=== PATIENT | male | born 1955 | race Caucasian/White ===

== ENCOUNTER → 2017-06-02 | Outpatient (CLI) | payer BC, OTHER ==
[~2017-06-02] MED LIST: B COMPLEX1 EAC1 PO; CALCIUM 600 +1 EAC8 PO; CENTRUM SILVER1 EAC4 PO; CLONAZEPAM 1 MG1 M1 PO; FISH OIL 1,2001 EAC4 PO; IBUPROFEN 200200 M1 PO; MIRALAX17 GM PO; NEURONTIN 300300 M1 PO; OMEGA-31000 M1 PO; OXYCONTIN40 MG PO; PERCOCET 10-321 EACH PO; PSEUDOEPHEDRIN120 M1 PO; RELPAX40 MG PO; TUMS PO; TYLENOL325 MG PO; VITAMIN E400 UNIT PO
== END ==
LOC: ULTRA 07:18
DX: R10.11 Right upper quadrant pain (principal)

== ENCOUNTER 2017-07-15 16:10 | Emergency (ER) | payer BC, OTHER ==
[~2017-07-15] VITALS: Ht 180.3 cm; Wt 95.3 kg
--- NOTE | ~2017-07-15 | EKG ---
[address] [address] ELECTROCARDIOGRAM REPORT Name: RALF MAIN Room #: 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
[2017-07-15 16:33] LABS: URINE BILIRUBIN NEGATIVE (Negative); URINE BLOOD NEGATIVE (Negative); URINE CLARITY SL CLOUDY; URINE COLOR YELLOW; URINE GLUCOSE-RANDOM* NEGATIVE (Negative); URINE KETONES NEGATIVE (Negative); URINE LEUKOCYTES NEGATIVE (Negative); URINE NITRITE NEGATIVE (Negative); URINE PROTEIN (DIPSTICK) NEGATIVE (Negative); URINE SPECIFIC GRAVITY 1.025 (1.005-1.035); URINE UROBILINOGEN 0.2 E.U./dl (0.2-1.0)
[2017-07-15 16:49] LABS: ABSOLUTE NEUTROPHILS 7.5 thou/uL (1.4-8.2); BASOPHILS 0.5 % (0.0-2.0); EOSINOPHILS 2.2 % (0.0-3.0); HEMATOCRIT 48.6 % (42.0-52.0); LYMPHOCYTES 21.6 % (24.0-44.0); MCH 30.5 pg (26.0-34.0); MONOCYTES 6.1 % (1.0-8.0); PLATELET COUNT 280 thou/uL (150-400); POLYS 69.6 % (36.0-66.0); RBC 5.59 mil/uL (4.50-6.00); RDW 13.6 % (10.5-14.5); WBC 10.7 thou/uL (4.0-11.0)
[2017-07-15] MEDS ORDERED: MOVANTIK25 MG PO (16:54)
[2017-07-15] MEDS ORDERED: AMPHETAMINE SAL20 M1 PO (16:54)
[2017-07-15] MEDS ORDERED: TESTONE CI200 MG/1 M IM (16:56)
[2017-07-15 16:57] LABS: ANION GAP 6 mmol/L (7-16); BUN 23 mg/dL (7-18); CALCIUM 9.5 mg/dL (8.5-10.1); CHLORIDE 103 mmol/L (98-107); CO2 31 mmol/L (21-32); GLUCOSE 118 mg/dL (74-106); POTASSIUM 3.8 mmol/L (3.5-5.1); SODIUM 140 mmol/L (136-145)
[2017-07-15 17:09] LABS: ALBUMIN 4.1 g/dL (3.4-5.0); LIPASE 129 U/L (73-393); SGOT 16 U/L (15-37); SGPT 33 U/L (30-65); TOTAL BILIRUBIN 0.7 mg/dL (<0.1-1.0); TOTAL PROTEIN 7.4 g/dL (6.4-8.2); TROPONIN-I < 0.04 ng/mL (<0.06)
[2017-07-15 17:49] LABS: AMP/METHAMP POSITIVE (Negative); BARBITURATES Negative (Negative); BENZODIAZEPINES Negative (Negative); COCAINE Negative (Negative); METHADONE Negative (Negative); OPIATES POSITIVE (Negative); PCP Negative (Negative)
[2017-07-15 19:08] VITALS: BP 136/79
== END 2017-07-15 19:09 | disposition home or self-care (01) ==
LOC: ER 16:10
PROVIDERS: Emergency Medicine; Nurse Practitioner Family
DX: G89.29 Other chronic pain (principal); M79.602 Pain in left arm; M79.601 Pain in right arm; K21.9 Gastro-esophageal reflux disease without esophagitis; K59.00 Constipation, unspecified; Z87.442 Personal history of urinary calculi; Z87.891 Personal history of nicotine dependence

== ENCOUNTER → 2019-07-28 | Outpatient (CLI) | payer BC, OTHER ==
[~2019-07-28] MED LIST changes: +AMPHETAMINE SAL20 M1 PO; +MOVANTIK25 MG PO; +TESTONE CI200 MG/1 M IM
== END ==
LOC: MRI 07-11 15:39
DX: M47.815 Spondylosis without myelopathy or radiculopathy, thoracolumbar region (principal); M51.26 Other intervertebral disc displacement, lumbar region

== ENCOUNTER → 2019-11-30 | Outpatient (CLI) | payer BC, OTHER ==
[~2019-11-30] VITALS: Ht 180.3 cm; Wt 103.5 kg
[~2019-11-30] MED LIST changes: +CYMBALTA30 MG PO; +DEPO-TESTO200 MG/1 M IM; +EXCEDRIN CAPLE1 EACH PO; +GEODON 80 MG CA80 MG PO; +KLONOPIN1 MG PO; +METHADONE HCL 110 M1 PO; +METHYLPHENIDATE5 MG PO; +MORPHABOND PO; +MULTIVITAMINS1 EAC7 PO; +NUCYNTA ER150 MG PO; +NUCYNTA75 MG PO; +OXYCONTIN80 M1 PO
[2019-11-30 15:30] VITALS: BP 124/76
--- NOTE | 2019-11-30 15:52 | NUR ---
Pain Clinic Assessment: 1. History of Osteoarthritis: SPINAL History of Rheumatoid Arthritis: Not Applicable 2. Height: 5 ft. 11 in. 180.3 cm. Weight: 228.2 lb. oz. 103.511 kg. Patient's BMI: 31.8 3. Vital Signs: BP: 124/76 Pulse: 80 Resp: 16 Temp: 02 Sat: 97 ECG Mon: 4. Pain Intensity: 6 5. Fall Risk: Dizziness: N Needs help standing or walking: N Fallen in the last 3 months: N Fall risk comments: 6. Patient on Blood Thinner: None 7. History of Hypertension: N 8. Opioid Therapy greater than 6 weeks: Y Opiate Contract Signed: 9. Risk Assessment Tool Provided: DR STEINER 10. Functional Assessment Tool: 11. Recreational Drug Use: Never Drug Type: Tobacco Use: Never Smoker Tobacco Type: Amount or Packs/day: How Many Years: Alcohol Use: Yes Frequency: Monthly Quant: 1 DRINK
--- NOTE | 2019-12-13 09:14 | HPC ---
[facility] [place] [address] PAIN MANAGEMENT CONSULTATION Name: RALF MAIN Room #: REG Breana Gonzalez.#: [id number] Admission: 11/30/19 Attend Phys: Austyn Hays DO Discharge: Date of : 55 Report #: [id number] THIS REPORT FOR: cc: Dharmesh Short MD, Neal A. MD Johnson, James E. DO ~ DATE OF SERVICE: 11/30/2019 REFERRING PHYSICIAN: Neptali Story MD CHIEF COMPLAINT: Low back pain, bilateral lower extremity pain, right greater than left. HISTORY OF PRESENT ILLNESS: As you know, the patient is a 64-year-old male who has returned today in followup visit per the request of his neurosurgeon, Dr. Neptali Story to undergo a lumbar epidural injection to address suspected lumbar radiculopathy. The patient is reporting pain that begins in low back, radiates to the bilateral legs, right greater than left. He indicates pain on the anterior and anterolateral thigh as well as the posterior and posterolateral thigh. He notes numbness and tingling in this distribution. He has been referred to our clinic to trial an epidural injection under fluoroscopic guidance in hopes of improving pain. Plan according to the patient is if epidural injections do provide benefit, to continue this more conservative option. If no improvement in symptoms, surgical options will be entertained. He has been referred back to our clinic after being last seen in July to undergo lumbar epidural injection. ALLERGIES: No known drug allergies. CURRENT MEDICATIONS: See chart. SOCIAL HISTORY: The patient reports he is a nonsmoker. He denies IV or illicit drug use. Admits to one drink monthly. He is accompanied by his present in room today. IMAGING: No new imaging available. PHYSICAL EXAMINATION: VITAL SIGNS: Blood pressure 124/76, pulse is 80, respiratory rate 16 and unlabored. The patient is 97% on room air. Height 5 feet 11 inches tall, weight 228.2 pounds, BMI calculated 31.8. GENERAL: Well-developed, well-nourished, well-hydrated 64-year-old male, he appears stated age, no acute distress. Pain is rated today 6/10. HEENT: Normocephalic, atraumatic. Pupils equal, round and reactive. NEUROLOGIC: Speech fluent. The patient [place] [address] PAIN MANAGEMENT CONSULTATION Name: JOSE DAVIDRALF Room #: REG CLBreana Hector#: [id number] Admission: 11/30/19 Attend Phys: Austyn Hays DO Discharge: Date of : 55 Report #: [id number] EXTREMITIES: Show no clubbing, no cyanosis, no edema. MUSCULOSKELETAL: There is a well-healed surgical scar in the lumbar region. Paraspinal muscle bulk is equal and symmetrical. There is restricted range of motion of the lumbar spine with rotation, lateral flexion and extension. There is tenderness to palpation over the paraspinal musculature of lower lumbar spine. No spinous process tenderness. Seated straight leg raising negative. Supine straight leg raising negative. Escobar test is negative. Modified Gaenslen positive for some axial low back pain. ASSESSMENT: 1. Suspected lumbar radiculopathy. 2. Lumbosacral spondylosis with radiculopathy. 3. Spinal stenosis of lumbar spine. 4. Chronic intractable pain. PLAN: 1. The patient returns today in followup visit per the request of his neurosurgeon, Dr. Neptali Story to undergo lumbar epidural injection under fluoroscopic guidance. They are wishing to determine if the patient will improve with conservative treatment options prior to considering surgical options. The patient and I discussed at length today the risks and the benefits of a lumbar epidural injection. These risks include but are not necessarily limited to bleeding, bruising, infection, worsening pain, no relief of pain, also risk of temporary or permanent muscle weakness, temporary or permanent nerve damage, possible paralysis and . The patient states understood and wished to proceed. 2. No medication changes made at today's visit. The patient will continue current medical therapy as previously prescribed. 3. We will see the patient back in followup visit in 30+ days for reevaluation. At that time, we will discuss the efficacy of today's epidural injection and determine if next in the series of epidural injections is warranted. We are hopeful the patient will see good benefit with today's procedure. 4. We wish to thank Dr. Story for the re-referral of the patient to our clinic. We will keep you apprised of his response to treatment. PROCEDURE NOTE: L5-S1 intralaminar epidural steroid injection under fluoroscopic guidance. This is the first procedure of the first series that the patient is undergoing. After obtaining written consent, the patient was taken back to the fluoroscopy suite, placed in a prone position with pillow under the abdomen to decrease lumbar lordosis. The skin overlying the lumbosacral area was then prepped and draped in aseptic fashion. The L5-S1 vertebral interspace was then identified by AP fluoroscopy. The skin and subcutaneous tissue overlying the target site of injection was anesthetized with 3 mL 1% lidocaine. [address] [address] PAIN MANAGEMENT CONSULTATION Name: RALF MAIN Room #: REG CLBreana Gonzalez#: [id number] Admission: 11/30/19 Attend Phys: Austyn Hays DO Discharge: Date of : 55 Report #: [id number] A(n) 20-gauge 3-1/2 inch Tuohy needle was then advanced under fluoroscopic guidance towards the epidural space using a midline approach. The epidural space was identified using loss of resistance to air technique. After negative aspiration for heme or cerebrospinal fluid, a total of 1 mL of Omnipaque was injected. A lumbar epidurogram was confirmed using both AP and lateral fluoroscopy. After negative aspiration for heme or cerebrospinal fluid, 5 mL of a solution containing 2 mL 40 mg per mL, 80 mg total triamcinolone along with 3 mL lidocaine 1% was injected in increments. Contrast spread was noted posterior epidural space. The needle was then retracted approximately half way and needle tract flushed with 1 mL of 1% lidocaine. Needle was then removed. There were no apparent sensory or motor deficits in the lower extremity following the procedure. A sterile bandage was placed over the injection site. The heart rate, pulse, oximetry and blood pressure were continuously monitored after the procedure. There were no apparent complications. The patient tolerated the procedure well and was carefully escorted to the recovery room in stable condition. There were no apparent complications. After meeting discharge criteria, the patient was then discharged home. <ELECTRONICALLY SIGNED> By: Austyn Hays DO 12/13/19 0914 1117 1321 Austyn Hays DO /familia
== END | disposition home or self-care (01) ==
LOC: PAIN 07:00
PROVIDERS: ATTEND Anesthesiology Pain Medicine
DX: M54.16 Radiculopathy, lumbar region (principal); G89.29 Other chronic pain; G47.00 Insomnia, unspecified; Z98.890 Other specified postprocedural states; Z79.899 Other long term (current) drug therapy

== ENCOUNTER → 2020-01-03 | Outpatient (CLI) | payer BC, OTHER ==
[~2020-01-03] VITALS: Ht 180.3 cm; Wt 104.1 kg
[2020-01-03 13:00] VITALS: BP 140/82
--- NOTE | 2020-01-03 13:13 | NUR ---
Pain Clinic Assessment: 1. History of Osteoarthritis: SPINAL History of Rheumatoid Arthritis: Not Applicable 2. Height: 5 ft. 11 in. 180.3 cm. Weight: 229.6 lb. oz. 104.146 kg. Patient's BMI: 32.0 3. Vital Signs: BP: 140/82 Pulse: 104 Resp: 16 Temp: 02 Sat: 97 ECG Mon: 4. Pain Intensity: 2 AT REST 5. Fall Risk: Dizziness: N Needs help standing or walking: N Fallen in the last 3 months: N Fall risk comments: 6. Patient on Blood Thinner: None 7. History of Hypertension: N 8. Opioid Therapy greater than 6 weeks: Y Opiate Contract Signed: 9. Risk Assessment Tool Provided: DR STEINER 10. Functional Assessment Tool: 11. Recreational Drug Use: Never Drug Type: Tobacco Use: Never Smoker Tobacco Type: Amount or Packs/day: How Many Years: Alcohol Use: Yes Frequency: Quant:
--- NOTE | 2020-01-04 11:46 | HPC ---
[facility] [place] [address] PAIN MANAGEMENT CONSULTATION Name: RALF MAIN Room #: REG Breana AnnaMarcoGabby.#: [id number] Admission: 01/03/20 Attend Phys: Austyn Hays DO Discharge: Date of : 55 Report #: [id number] THIS REPORT FOR: cc: Dharmesh Short MD, Neal A. MD Johnson, James E. DO ~ DATE OF SERVICE: 01/03/2020 CHIEF COMPLAINT: Low back pain, bilateral lower extremity pain, right greater than left. HISTORY OF PRESENT ILLNESS: As you know, the patient is a 64-year-old male who was referred back to our clinic by his neurosurgeon Dr. Neptali Story to undergo a lumbar epidural injection under fluoroscopic guidance to address lumbar radiculopathy. The patient was seen in consultation 11/30/2019 and underwent the requested lumbar epidural injection. He returns today in followup visit reporting pain score 2/10 at rest, but can get as high as 8/10. He reports efficacy with the initial epidural injection providing good benefit of about 50%, but only lasted for about 1 week. Unfortunately, symptoms returned quite quickly and has returned to his baseline level. He returns today in followup visit to discuss treatment options. He indicates pain begins now more on the low back and left leg, but intermittently right. He describes the pain as continuous, rhythmic, transient, burning, sharp, stabbing and tender. Indicates pain is exacerbated with doing any activity such as bending, lifting, showering or doing chores, improves with medications and rest. He has returned today in followup visit to discuss options for treatment. The patient does provide information today that he is leaving the country to live in [facility] as early as 02/20 which does limit his potential treatment options. He wants to discuss that today. ALLERGIES: No known drug allergies. CURRENT MEDICATIONS: Pseudoephedrine 120 mg once a day, calcium carbonate 1 tab per day, vitamin E 400 units once a day, omega-3 fish oil 1200 mg once a day, omega-3 fatty acids 1000 mg per day, vitamin B complex 1 tab once a day, multivitamin 1 tab per day, MiraLax 17 grams per day, calcium carbonate 500 mg once a day, Percocet 10/325 one tab every 6 hours p.r.n. pain, Movantik 25 mg once a day, methadone 10 mg twice a day, testosterone intramuscular 200 mg as required, clonazepam 1 mg twice a day, Geodon 80 mg 2 tabs p.o. q.a.m., aspirin 81 mg per day, multivitamin 1 tab per day. SOCIAL HISTORY: The patient reports he is a nonsmoker. He denies IV or illicit drug use. He admits to occasional alcohol beverage. He is accompanied by [place] [address] PAIN MANAGEMENT CONSULTATION Name: JOSE DAVIDRALF GAGE Room #: REG [facility].#: [id number] Admission: 01/03/20 Attend Phys: Austyn Hays DO Discharge: Date of : 55 Report #: [id number] IMAGING: No new imaging available. PHYSICAL EXAMINATION: VITAL SIGNS: Blood pressure 140/82, pulse 104, respiratory rate 16 and unlabored. The patient is 97% on room air. Height 5 feet 11 inches tall, weight 229.6 pounds, BMI calculated 32.0. GENERAL: Well-developed, well-nourished, well-hydrated 64-year-old male, appears stated age, pain is rated at 2/10 at rest, up to 8/10 with activities. HEENT: Normocephalic, atraumatic. Pupils equal, round and reactive. Extraocular muscles are intact. Speech fluent. EXTREMITIES: Show no clubbing, no cyanosis, and no edema. MUSCULOSKELETAL: Lower extremity strength appears equal and symmetrical 5/5. He is intact to light touch from L1 through S2 dermatomes. Well-healed surgical scar in the lumbar region. Paraspinal muscle bulk is equal and symmetrical. There is some palpatory tenderness noted on the left. Seated straight leg raising negative. Supine straight leg raising negative. Escobar's test is negative. Modified Gaenslen's positive for some axial low back pain. Ankle clonus negative. Babinski is negative. ASSESSMENT: 1. Chronic lumbar radiculopathy. 2. Spinal stenosis of lumbar spine. 3. Lumbosacral spondylosis with radiculopathy. 4. Chronic intractable pain. PLAN: 1. The patient returns today in followup visit having indicated only transient improvement with the epidural injection provided at last visit. The patient reports no greater than 1 week worth of improvement and this was only about 50% consistent with a typical steroid exposure, but subtherapeutic in its activity. He wishes to discuss options for treatment based on this lack of efficacy with the initial epidural injection. We discussed with the patient the other options for treatment. These would include physical therapy, stretching exercises and core strengthening, which could be initiated, but may not be able to be continued as he is leaving to live in [facility] early February. He could start physical therapy, but efficacy may not be recognized. We also discussed with the patient medication management. This would be a very difficult proposition with him leaving the country as the medications that we might prescribe will not be available to him to be able to obtain in his new home country. We discussed this at length today. He will ultimately have to come off the majority of his medication he is currently on as they do not offer these type of medications in [facility]. I would not recommend initiating any medication management in this patient's case as he will not be able to obtain these medications in a foreign country. As for the patient undergoing next in the series of epidural injections, he is unwilling to undergo [facility] [address] [place] [address] PAIN MANAGEMENT CONSULTATION Name: RALF MAIN Room #: REG [facility] M..#: [id number] Admission: 01/03/20 Attend Phys: Austyn Hays DO Discharge: Date of : 55 Report #: [id number] the injection as it did not provide long-term benefit. The fact that he did not see significant benefit would indicate that he is not amenable to epidural injections. I recommend the patient discontinue this activity as he will not see long-term benefit as he has seen only a week improvement with the first injection. The patient and I did discuss that in the past he had had injections all of which provided only transient improvement and he ultimately had to have surgical decompression. We did discuss the possibility of a spinal cord stimulator with the patient today, but once again given his plans to leave the country in February and live in [facility], there will be no way for us to monitor the device nor make adjustments necessary with spinal cord stimulators. This is not a recommended treatment option. We have only one remaining option for the patient and that would be a surgical intervention. He is going to look into this with his referring neurosurgeon Dr. Neptali Story. 2. No medication changes made at today's visit. As indicated above, making any changes in medication at this time will only provide minimal improvement as he will have to discontinue these therapies before leaving the country as he will not be able to obtain these therapies in [facility]. 3. We will be willing to see the patient back in followup visit on an as needed basis. With him leaving the country in February, this leaves limited amount of time to be able to offer any type of treatment option and certainly will not see long-term benefit given the lack of efficacy with epidural injections and the fact that he cannot obtain medications in his future home country. We will be returning his care to Dr. Neptali Story, the referring physician, to discuss options for treatment from a surgical standpoint. <ELECTRONICALLY SIGNED> By: Austyn Hays DO 01/04/20 1146 1527 1542 Austyn Hays DO /nt
== END ==
LOC: PAIN 06:58
PROVIDERS: ATTEND Anesthesiology Pain Medicine
DX: M47.27 Other spondylosis with radiculopathy, lumbosacral region (principal); M54.5 Low back pain; M79.605 Pain in left leg; M79.604 Pain in right leg; G89.29 Other chronic pain; M48.061 Spinal stenosis, lumbar region without neurogenic claudication; Z79.899 Other long term (current) drug therapy

== ENCOUNTER → 2020-01-25 | Outpatient (CLI) | payer BC, OTHER ==
[~2020-01-25] VITALS: Ht 180.3 cm; Wt 105.9 kg
--- NOTE | ~2020-01-25 | HPC ---
[facility] [place] [address] PAIN MANAGEMENT CONSULTATION Name: RALF MAIN Room #: [id number] Admission: 01/25/20 Attend Phys: Austyn Hays DO Discharge: Date of : 55 Report #: [id number] THIS REPORT FOR: cc: Dharmesh Short MD, Neal A. MD Johnson, James E. DO ~ CC: NEPTALI Short MD DATE OF SERVICE: 01/25/2020 REFERRING PHYSICIAN: Neptali Story MD PRIMARY CARE PHYSICIAN: Dharmesh Short MD CHIEF COMPLAINT: Low back pain, bilateral lower extremity pain with paresthesias, right greater than left. HISTORY OF PRESENT ILLNESS: As you know, the patient is a 64-year-old male referred to our service by his neurosurgeon, Dr. Neptali Story to undergo lumbar epidural injections under fluoroscopic guidance. We saw the patient, per Dr. Story's request on 11/30/2019 where we discussed the possibility of undergoing epidural injection. He underwent the epidural injection with no benefit. He returned in followup visit on 01/03/2020 where we discussed the lack of efficacy with the epidural injection. It was discussed at that time, the patient was planning to move to [facility] and that treatment options would be limited based on that timeframe, the patient wished to leave the country. He chose to follow up with Dr. Story in regards to the possible surgical options. Apparently, the patient was seen recently and was advised no surgical options are necessary. He returns to discuss other options for treatment. The patient is experiencing low back and bilateral lower extremity symptoms for which he describes the pain as numbness, tingling, sharp and sore in its characteristics. The pain is exacerbated with walking, standing, bending, lifting; improves with medications, seated position and repositioning. He returns to discuss interventional treatment options as medication management will not be possible in [facility]. Interventional treatments may be his only option for treatment for a temporary improvement in symptoms. ALLERGIES: No known drug allergies. CURRENT MEDICATIONS: See the extensive list in chart. SOCIAL HISTORY: The patient denies smoking. Denies IV or illicit drug use. Admits occasional alcohol beverage. [place] [address] PAIN MANAGEMENT CONSULTATION Name: RALF MAIN Room #: REG LORENA Young#: [id number] Admission: 01/25/20 Attend Phys: Austyn Hays DO Discharge: Date of : 55 Report #: [id number] room too. IMAGING: No new imaging available. PHYSICAL EXAMINATION: VITAL SIGNS: Blood pressure 119/77, pulse 72, respiratory rate 16 and unlabored. The patient is 96% on room air. Height 5 feet 11 inches tall, weight 233.4 pounds, BMI calculated 32.6. GENERAL: Well-developed, well-nourished, well-hydrated exogenously obese 64-year-old male appearing stated age, pain is rated today at 3/10. HEENT: Normocephalic, atraumatic. Pupils are equal, round and reactive. EXTREMITIES: Show no clubbing, no cyanosis, no edema. MUSCULOSKELETAL: Lower extremity strength is symmetrical again today 5/5. Muscle bulk and tone equal and symmetrical in comparing lower extremities. He has well-healed surgical scar in lumbar region. Paraspinal musculature is tender to palpation, more on the left than the right. Seated straight leg raising is negative. Supine straight leg raising is negative. Escobar's test is negative. Modified Gaenslen's positive for some axial low back pain. ASSESSMENT: 1. Chronic lumbar radiculopathy. 2. Spinal stenosis of lumbar spine. 3. Lumbosacral spondylosis with radicular symptoms. 4. Facet arthropathy of the lumbar spine. 5. Chronic intractable pain. PLAN: 1. The patient returns today in followup visit requesting interventional treatment to address axial back pain and lower extremity symptoms. I have advised the patient at this point that epidural injections would not provide much in the way of benefit as previous injections have been unsuccessful. It was suggested by his neurosurgeon that patient try intra-articular facet injections, though I have advised the patient this will provide only transient improvement in symptoms if he is looking for potential longer term benefit, a treatment would be medial branch nerve blocks and possible radiofrequency lesioning. We have a very limited time to be able to perform this procedure as the patient is planning to leave the country at the end of February. He returns today to discuss with the opportunity to trial treatment to address facet arthropathy pain. We discussed medial branch nerve blocks and radiofrequency lesioning is the most appropriate treatment option. The patient is agreeable to undergo the procedure. The patient has been advised of the risks and benefits of medial branch nerve blocks today. These risks include but are not necessarily limited to bleeding, bruising, infection, worsening pain, no relief of pain, also risk of temporary or permanent muscle weakness, temporary or permanent nerve damage, [facility] [address] [place] [address] PAIN MANAGEMENT CONSULTATION Name: RALF MAIN Room #: REG LORENA Young#: [id number] Admission: 01/25/20 Attend Phys: Austyn Hays DO Discharge: Date of : 55 Report #: [id number] possible paralysis and . The patient states he understood and wished to proceed. 2. We made no changes in the patient's medication management at this time. He will continue current medical therapy as previously prescribed. 3. We will plan to see the patient back in followup visit next week. If the medial branch blocks do provide greater than 80% improvement in overall pain and he notes significant improvement in functionality, we would then recommend the second in the series of medial branch blocks. If again the patient is noticing excellent benefit and profound improvement in his functional capacity, then I would recommend moving forward with radiofrequency lesioning. We will assess at the followup visit in 1 week. PROCEDURE: Bilateral L3, L4, L5 medial branch nerve blocks under fluoroscopic guidance. DESCRIPTION OF PROCEDURE: After obtaining written consent, the patient was taken back to fluoroscopy suite, placed in prone position with pillow under abdomen to decrease lumbar lordosis. The skin overlying the lumbosacral area was then prepped and draped in aseptic fashion. The L4 transverse process corresponding the L3 medial branch nerve and the L5 transverse process corresponding the L4 medial branch nerve on both the left and right sides were visualized under AP fluoroscopy. Skin and subcutaneous tissue overlying each of the target site of injection was anesthetized with 1 mL of 1% preservative-free lidocaine utilizing a 27-gauge 1-1/4 inch needle. __ 22-gauge 3-1/2 inch spinal needles with bent tips were advanced under fluoroscopic guidance using a superior, inferior, lateral to medial approach to the dorsal superior and medial aspect of the base of the transverse processes. The needles were directed caudally to reach their target locations. An oblique view facilitated needle placement with properly positioned needles within the middle of the "eye" of the Terrell dog. At each site, needles rested on periosteum. After negative aspiration for heme, 0.5 mL bupivacaine 0.5% was injected at each site. [place] were retracted approximately half way, flushed with 1 mL of 1% lidocaine and removed. The L5 dorsal ramus block on both the left and right side was performed using a slightly oblique approach under fluoroscopic guidance, placing the needle within the groove between the sacral ala and the superior articular process of S1. At both sites, the needles rested on periosteum. After negative aspiration for heme, 0.5 mL of bupivacaine 0.5% was injected slowly to avoid forcing the solution away from the site. [place] were retracted chcf, flushed with 1 mL of 1% lidocaine and removed. Sterile bandages were placed over each of the injection sites. The patient tolerated procedure well, carefully escorted to recovery room in stable condition. No apparent complications. VAS before procedure was rated at [address] [address] PAIN MANAGEMENT CONSULTATION Name: RALF MAIN Room #: REG CLBreana Young#: [id number] Admission: 01/25/20 Attend Phys: Austyn Hays DO Discharge: Date of : 55 Report #: [id number] 3/10, VAS 10 minutes after procedure was rated at 3-4/10. After meeting our discharge criteria, the patient discharged home. By: [id number] Austyn Hays DO /nt
[2020-01-25 14:50] VITALS: BP 119/77
--- NOTE | 2020-01-25 15:11 | NUR ---
Pain Clinic Assessment: 1. History of Osteoarthritis: SPINAL History of Rheumatoid Arthritis: Not Applicable 2. Height: 5 ft. 11 in. 180.3 cm. Weight: 233.4 lb. oz. 105.870 kg. Patient's BMI: 32.6 3. Vital Signs: BP: 119/77 Pulse: 72 Resp: 16 Temp: 02 Sat: 96 ECG Mon: 4. Pain Intensity: 3 5. Fall Risk: Dizziness: N Needs help standing or walking: N Fallen in the last 3 months: N Fall risk comments: 6. Patient on Blood Thinner: None 7. History of Hypertension: N 8. Opioid Therapy greater than 6 weeks: Y Opiate Contract Signed: 9. Risk Assessment Tool Provided: MODERATE RISK 09/26 10. Functional Assessment Tool: 11. Recreational Drug Use: Never Drug Type: Tobacco Use: Never Smoker Tobacco Type: Amount or Packs/day: How Many Years: Alcohol Use: Yes Frequency: Monthly Quant: 1-2
== END | disposition home or self-care (01) ==
LOC: PAIN 07:05
PROVIDERS: ATTEND Anesthesiology Pain Medicine
DX: M54.5 Low back pain (principal); M47.27 Other spondylosis with radiculopathy, lumbosacral region; M51.16 Intervertebral disc disorders with radiculopathy, lumbar region; M48.061 Spinal stenosis, lumbar region without neurogenic claudication; G89.29 Other chronic pain; Z79.899 Other long term (current) drug therapy; Z88.8 Allergy status to other drugs, medicaments and biological substances

== ENCOUNTER → 2020-02-08 | Outpatient (CLI) | payer BC, OTHER ==
[~2020-02-08] VITALS: Ht 180.3 cm; Wt 106.4 kg
[2020-02-08 13:05] VITALS: BP 123/83
--- NOTE | 2020-02-08 13:14 | NUR ---
Pain Clinic Assessment: 1. History of Osteoarthritis: SPINAL History of Rheumatoid Arthritis: DENIES 2. Height: 5 ft. 11 in. 180.3 cm. Weight: 234.6 lb. oz. 106.414 kg. Patient's BMI: 32.7 3. Vital Signs: BP: 123/83 Pulse: 88 Resp: 20 Temp: 02 Sat: 96 ECG Mon: 4. Pain Intensity: 3 5. Fall Risk: Dizziness: Y Needs help standing or walking: N Fallen in the last 3 months: N Fall risk comments: 6. Patient on Blood Thinner: None 7. History of Hypertension: N 8. Opioid Therapy greater than 6 weeks: Y Opiate Contract Signed: 9. Risk Assessment Tool Provided: MODERATE RISK 09/26 10. Functional Assessment Tool: 11. Recreational Drug Use: Never Drug Type: Tobacco Use: Never Smoker Tobacco Type: Amount or Packs/day: How Many Years: Alcohol Use: Yes Frequency: Monthly Quant:
--- NOTE | 2020-02-14 13:01 | HPC ---
[facility] [place] [address] PAIN MANAGEMENT CONSULTATION Name: RALF MAIN Room #: REG [facility] Carlos.#: [id number] Admission: 02/08/20 Attend Phys: Austyn Hays DO Discharge: Date of : 55 Report #: [id number] THIS REPORT FOR: cc: Dharmesh Short MD, Neal A. MD Johnson, James E. DO ~ DATE OF SERVICE: 02/08/2020 REFERRING PHYSICIAN: Dr. Neptali Story. CHIEF COMPLAINT: Low back pain, bilateral lower extremity pain and paresthesias, right greater than left. HISTORY OF PRESENT ILLNESS: As you know, the patient is a 64-year-old male referred back to our service by his neurosurgeon, Dr. Neptali Story to undergo treatment for axial back pain. The patient has had epidural injections in the past, which provided zero improvement in overall pain. He received no benefit in anyway with the epidural injections. We discontinued this activity. He was seen again in followup visit per the request of Dr. Story requesting facet injections. He underwent medial branch blocks as a determination whether or not radiofrequency lesioning would be helpful to address his facet arthropathy pain. He returns today reporting no improvement with the medial branch blocks even transiently. He would appear to be unresponsive to interventional treatments based on his prior track record with our services. He returns today in followup visit stating pain of greater than 3/10. He denies injury, trauma or any changes in medical history since our visit of last week where he underwent medial branch blocks bilaterally with no improvement in pain. ALLERGIES: No known drug allergies. CURRENT MEDICATIONS: See extensive list in chart. SOCIAL HISTORY: The patient denies tobacco use. Denies IV or illicit drug use. Admits occasional alcohol beverage. He is presenting with his who is here in room providing most of the patient's history. IMAGING: No new imaging available. PHYSICAL EXAMINATION: VITAL SIGNS: Blood pressure 123/83, pulse 88, respiratory rate 20 and unlabored. The patient is 96% on room air. Height 5 feet 11 inches tall, weight 234.6 pounds, BMI calculated 32.7. GENERAL: Well-developed, well-nourished, well-hydrated 64-year-old male appearing stated age. He is in no acute distress. He is awake, alert and oriented. Pain is rated only around 3/10. [facility] [address] [place] [address] PAIN MANAGEMENT CONSULTATION Name: JOSE DAVIDRALFSNOW GAGE [facility] #: [facility] [id number] Admission: 02/08/20 Attend Phys: Austyn Hays DO Discharge: Date of : 55 Report #: [id number] HEENT: Normocephalic, atraumatic. Pupils equal, round and reactive. EXTREMITIES: Show no clubbing, no cyanosis. No appreciable edema. MUSCULOSKELETAL: Lower extremity strength is symmetrical 5/5. Muscle bulk and tone is symmetrical in comparing lower extremities. Well-healed surgical scar over the lumbar region. There is some paraspinal muscle tenderness. Modified Gaenslen's is positive for some axial back pain. ASSESSMENT: 1. Chronic lumbar radiculopathy. 2. Spinal stenosis of lumbar spine. 3. Lumbosacral spondylosis with radicular symptoms. 4. Facet arthropathy of the lumbar spine. 5. Chronic intractable pain. PLAN: 1. The patient returns today in followup visit having undergone medial branch blocks bilaterally with no improvement in symptoms. The patient states that he received not even transient benefit with the injection series, which would indicate that facet arthropathy may be a contributing source of the patient's symptoms, but is not the major pain generator. The fact that he received no benefit with the medial branch blocks, would preclude us from moving forward with RFA as he will note no significant pain improvement. The patient and I had this discussion today. I would not recommend continuing with medial branch blocks or radiofrequency lesioning given the lack of efficacy. We also discussed the lack of efficacy with previous epidural injections. I do not feel that repeating an injection series, which provided no benefit, would be helpful in this patient's case. 2. The patient and I did discuss the possibility of a spinal cord stimulator, but he has plans to leave the country and will have no way to adjust the device nor any way to monitor its use and efficacy in the country where he is moving, which is [facility]. This has also been precluded us from providing any medication management as these medications provided for pain control here in the [place] are not available in [facility]. 3. The patient indicates that he is going to discuss his case further with primary care about possibly undergoing new MRI of the lumbar spine. We have MRI lumbar spine obtained 07/28/2019 which does not show much in the way of pathology, some moderately severe degenerative changes, but unresponsive to medial branch blocks, which is the treatment of choice for facet arthropathy symptoms. I am not confident we will see significant changes in the distribution of pathology in the lumbar region over the past 6 months as the patient has been relatively inactive and no new injury or trauma, though if he wishes to discuss this with his PCP and obtain a new MRI, I would be more than willing to review that once it is available. 4. We made no changes in the patient's medication management at this time. He is to continue current medical therapy. [address] [place] [address] PAIN MANAGEMENT CONSULTATION Name: RALF MAIN Room #: REG LORENA Young#: [id number] Admission: 02/08/20 Attend Phys: Austyn Hays DO Discharge: Date of : 55 Report #: [id number] 5. We will be returning his care to his primary care physician and his neurosurgeon for further discussion. We have exhausted interventional treatment options with this patient and do not feel that further interventional treatments will be of benefit. We will be returning his care. <ELECTRONICALLY SIGNED> By: Austyn Hays DO 02/14/20 1301 [id number] Austyn Hays DO /nt
== END ==
LOC: PAIN 01-31 06:58
PROVIDERS: ATTEND Anesthesiology Pain Medicine
DX: M47.27 Other spondylosis with radiculopathy, lumbosacral region (principal); R20.2 Paresthesia of skin; M48.061 Spinal stenosis, lumbar region without neurogenic claudication; M47.26 Other spondylosis with radiculopathy, lumbar region; G89.29 Other chronic pain; M79.604 Pain in right leg; M79.605 Pain in left leg; Z79.899 Other long term (current) drug therapy

== ENCOUNTER → 2020-10-10 | Outpatient (CLI) | payer OTHER | LOC: NUC 09:01 | PROVIDERS: ATTEND Family Medicine | DX: R10.9 Unspecified abdominal pain (principal); R63.4 Abnormal weight loss ==

== ENCOUNTER 2020-10-30 08:55 | Day surgery (SDC) | payer OTHER ==
[~2020-10-30] VITALS: Ht 177.8 cm; Wt 104.3 kg
[~2020-10-30 08:55] MED LIST changes: +TAMSULOSIN HCL0.4 MG PO; +TRAZODONE HCL50 MG PO
[2020-10-30 10:15] LABS: HEMATOCRIT 40.9 % (42.0-52.0); HEMOGLOBIN 14.3 gm/dL (14.0-18.0); MCH 30.1 pg (26.0-34.0); MCHC 34.9 g/dL (28.0-37.0); MCV 86.1 fL (80.0-100.0); RBC 4.75 mil/uL (4.50-6.00); RDW 12.7 % (10.5-14.5); WBC 7.4 thou/uL (4.0-11.0)
[2020-10-30 10:23] LABS: CALCIUM 8.7 mg/dL (8.5-10.1); CREATININE 1.1 mg/dL (0.7-1.3); POTASSIUM 3.6 mmol/L (3.5-5.1)
[2020-10-30 10:24] VITALS: BP 116/82
[2020-10-30 10:30] LABS: ALBUMIN 3.5 g/dL (3.4-5.0); TOTAL BILIRUBIN 0.9 mg/dL (0.2-1.0); TOTAL PROTEIN 6.8 g/dL (6.4-8.2)
[2020-10-30] MEDS ORDERED: IBUPROFEN 200200 M1 PO (11:18)
[2020-10-30] MEDS ORDERED: COLACE 100 MG100 MG PO (11:19)
[2020-10-30] MEDS ORDERED: TYLENOL325 MG PO (11:19)
[2020-10-30] MEDS ORDERED: PERCOCET 10-321 EACH PO (11:19)
[2020-10-30] MEDS ORDERED: MIRALAX17 GM PO (11:20)
[2020-10-30 12:39] VITALS: BP 116/82
--- NOTE | 2020-11-01 12:07 | PATH ---
[facility] [place] [address] PATHOLOGY RPT PROCEDURE Name: JOSE DAVIDRALF GAGE Room #: DEP [facility] M.R.#: [id number] Admission: 10/30/20 Date of : 55 Discharge: 10/30/20 Report #: [id number] Path Case #: [id number] [facility] Accession Number: [id number] . 01 Material submitted: . gallbladder - GALLBLADDER . 01 Clinical history: . LAPAROSCOPIC CHOLECYSTECTOMY . 02 Diagnosis: Gallbladder, excision: - Mild chronic cholecystitis; negative for malignancy. - Cholesterolosis. (MLK:liz; 10/31/2020) S 10/31/2020 1405 Local . 02 Electronically signed: . Ronni Chapa MD, Pathologist NPI- [id number] . 01 Gross description: . Fixative: formalin Labeled: gallbladder Specimen received: partially collapsed Dimensions: 7.5 x 3.7 x 1.5 cm Serosa: smooth jackson green Lymph node: not identified Mucosa: velvety-slightly raised yellow trabecular pattern Average wall thickness: 0.4 cm Calculi: None Abnormalities: None . [place] Man body, fundus, and the cystic duct margin in cassette A1. ([facility]; 10/30/2020) MELISSA/MELISSA 10/30/2020 2120 Local . 02 Pathologist provided ICD-10: K81.1, K82.4 . 02 CPT . 340122 Specimen Comment: A courtesy copy of this report has been sent to [phone], [phone] Specimen Comment: [id number] Specimen Comment: Report sent to / DR STEINER Performed at: [address] [address] PATHOLOGY RPT PROCEDURE Name: RALF MAIN Room #: DEP [facility] M.R.#: [id number] Admission: 10/30/20 Date of : 55 Discharge: 10/30/20 Report #: [id number] Path Case #: [id number] [facility] [address] [id number] MD Lázaro Davis MD Phone: [phone] Performed at: 02 [facility] [address] [id number] MD Torrey Ruiz MD Phone: [phone]
== END 2020-10-30 13:50 | disposition home or self-care (01) ==
LOC: TBA 08:55 → OR 08:55 → TBA 09:00 → OR 13:50
PROVIDERS: ATTEND Surgery
DX: K81.1 Chronic cholecystitis (principal); G89.29 Other chronic pain; F41.9 Anxiety disorder, unspecified; K21.9 Gastro-esophageal reflux disease without esophagitis; G43.909 Migraine, unspecified, not intractable, without status migrainosus; Z98.890 Other specified postprocedural states; Z79.899 Other long term (current) drug therapy; Z87.442 Personal history of urinary calculi; Z85.830 Personal history of malignant neoplasm of bone; Z20.822 Contact with and (suspected) exposure to COVID-19
CPT/HCPCS: 50010; 50101; 50411; 50555; 50558; 51489; 52265; 52266; 53307; 53310; 53312; 54022; 54118; 55245; 56462; 56525; 58574; 62110; 62900; 70005

== ENCOUNTER → 2021-01-09 | Outpatient (CLI) | payer OTHER ==
[~2021-01-09] MED LIST changes: +COLACE 100 MG100 MG PO
== END ==
LOC: ULTRA 09:00
PROVIDERS: ATTEND Family Medicine
DX: K76.0 Fatty (change of) liver, not elsewhere classified (principal); E07.89 Other specified disorders of thyroid; R16.1 Splenomegaly, not elsewhere classified; R22.1 Localized swelling, mass and lump, neck; Z90.49 Acquired absence of other specified parts of digestive tract